=== PATIENT | female | born 1980 | race Caucasian/White ===

== ENCOUNTER 2017-10-10 07:43 | Emergency (ER) | payer MEDICAID ==
--- NOTE | 2017-10-10 08:48 | EDM.PDOC ---
ED HPI GENERAL MEDICAL PROBLEM - General Chief Complaint: Abdominal Pain Stated Complaint: ABD PAIN Time Seen by Provider: 10/10/17 08:45 Source of Information: Reports: Patient History Limitations: Reports: No Limitations - History of Present Illness INITIAL COMMENTS - FREE TEXT/NARRATIVE: pt is in the middle of her 30 day course of acutane. She is now having left lower abdomanal pain. She was told if she had abdomanal pain that she she should be checked. Onset: Other ( started last nite. ) Duration: Hour(s): Location: Reports: Abdomen Associated Symptoms: Reports: Nausea/Vomiting Lower Abdominal Pain Score (Numeric/FACES): 8 - Related Data Allergies Allergy/AdvReac Type Severity Reaction Status Date / Time No Known Allergies Allergy Verified 10/10/17 07:55 Home Meds: Home Meds ALPRAZolam [Alprazolam] 0.5 mg PO DAILY PRN 10/10/17 [History] Cyclobenzaprine [Flexeril] 10 mg PO TID PRN 10/10/17 [History] Fluconazole [Diflucan] 150 mg PO ONETIME PRN 10/10/17 [History] ISOtretinoin [Amnesteem] 80 mg PO DAILY 10/10/17 [History] Mometasone/Formoterol [Dulera 200 MCG/5 MCG] 10/10/17 [History] Naproxen [Naproxen] 375 mg PO TID PRN 10/10/17 [History] Nortriptyline [Nortriptyline] 50 mg PO BEDTIME 10/10/17 [History] Sertraline [Zoloft] 100 mg PO BID 10/10/17 [History] Zolpidem Tartrate [Ambien] 10 mg PO BEDTIME PRN 10/10/17 [History] Past Medical History Respiratory History: Reports: Asthma [employer] TECHNICIAN History: Reports: Psychiatric History: Reports: Anxiety, Depression - Infectious Disease History Infectious Disease History: Reports: Chicken Pox - Past Surgical History GI Surgical History: Reports: Appendectomy Female Surgical History: Reports: Hysterectomy Social & Family History - Tobacco Use Smoking Status *Q: Light Tobacco Smoker Years of Tobacco use: 20 Packs/Tins Daily: 0.5 - Caffeine Use Caffeine Use: Reports: Coffee, Energy Drinks, Soda - Recreational Drug Use Recreational Drug Use: No ED ROS GENERAL - Review of Systems Review Of Systems: See Below Constitutional: Reports: Decreased Appetite, Other (pt did vomit) HEENT: Reports: No Symptoms Respiratory: Reports: No Symptoms Cardiovascular: Reports: No Symptoms Endocrine: Reports: No Symptoms GI/Abdominal: Reports: Abdominal Pain, Nausea, Vomiting : Reports: No Symptoms ED EXAM, GI/ABD - Physical Exam Exam: See Below Text/Narrative:: pt arrived with increased pain in the left lower abdoman. This did start last nite. She is on acutate and she was told to come in if she has acute abdomanal pain. This did develop last nite. She did vomit last nite. She did rate her pain at a 8 when she arrived. Exam Limited By: No Limitations General Appearance: Alert, Anxious, Moderate Distress Ears: Normal TMs Nose: Normal Inspection Throat/Mouth: Normal Inspection Head: Atraumatic Neck: Normal Inspection Respiratory/Chest: No Respiratory Distress Cardiovascular: Regular Rate, Rhythm GI/Abdominal Exam: Tender, Other ( Pt is tender in the left lower abdoman. ) (Female) Exam: Deferred Rectal (Female) Exam: Deferred, Other (Pt is having normal bms. ) Back Exam: Normal Inspection Extremities: Normal Inspection Neurological: Alert, Oriented, Normal Cognition Psychiatric: Normal Affect Course - Vital Signs Last Recorded V/S: Last Vital Signs Temp 35.8 C 10/10/17 07:57 Pulse 99 10/10/17 07:57 Resp 16 10/10/17 07:57 BP 149/96 H 10/10/17 07:57 Pulse Ox 99 10/10/17 07:57 - Orders/Labs/Meds Orders: Active Orders 24 hr Category Date Time Status Pelvis Non OB Comp [US] Stat Exams 10/10/17 09:00 Ordered Transvaginal Non OB [US] Stat Exams 10/10/17 09:00 Ordered CULTURE URINE [RM] Stat Lab 10/10/17 10:06 Uncollected Labs: Laboratory Tests 10/10/17 10/10/17 10/10/17 Range/Units 08:11 08:11 08:24 WBC 9.9 (4.5-11.0) K/uL RBC 4.56 (3.30-5.50) M/uL Hgb 14.0 (12.0-15.0) g/dL Hct 39.4 (36.0-48.0) % MCV 86 (80-98) fL MCH 31 (27-31) pg MCHC 36 (32-36) % Plt Count 320 (150-400) K/uL Neut % (Auto) 76 H (36-66) % Lymph % (Auto) 17 L (24-44) % [place] % (Auto) 5 (2-6) % Eos % (Auto) 2 (2-4) % Baso % (Auto) 0 (0-1) % Sodium 134 L (140-148) mmol/L Potassium 3.9 (3.6-5.2) mmol/L Chloride 100 (100-108) mmol/L Carbon Dioxide 25 (21-32) mmol/L Anion Gap 12.9 (5.0-14.0) mmol/L BUN 8 (7-18) mg/dL Creatinine 0.7 (0.6-1.0) mg/dL Est Cr Clr Drug Dosing 112.08 mL/min Estimated GFR (MDRD) > 60 (>60) Glucose 127 H (74-106) mg/dL Calcium 8.7 (8.5-10.1) mg/dL Total Bilirubin 0.3 (0.2-1.0) mg/dL AST 17 (15-37) U/L ALT 31 (12-78) U/L Alkaline Phosphatase 75 (46-116) U/L Total Protein 7.3 (6.4-8.2) g/dL Albumin 4.1 (3.4-5.0) g/dL Globulin 3.2 (2.3-3.5) g/dL Albumin/Globulin Ratio 1.3 (1.2-2.2) Amylase 47 (25-115) U/L Lipase 99 (73-393) U/L Urine Color Yellow Urine Appearance Slightly cloudy Urine pH 6.0 (4.5-8.0) Ur Specific [place]oss 1.020 (1.008-1.030) Urine Protein Negative (NEGATIVE) mg/dL Urine Glucose (UA) Normal (NEGATIVE) mg/dL Urine Ketones Negative (NEGATIVE) mg/dL Urine Occult Blood Negative (NEGATIVE) Urine Nitrite Negative (NEGATIVE) Urine Bilirubin Negative (NEGATIVE) Urine Urobilinogen Normal (NORMAL) mg/dL Ur Leukocyte Esterase Negative (NEGATIVE) Urine RBC 0-5 (0-5) Urine WBC 0-5 (0-5) Ur Epithelial Cells Moderate Amorphous Sediment Not seen Urine Bacteria Moderate Urine Mucus Moderate Meds: Medications Discontinued Medications Generic Name Dose Route Start Last Admin Trade Name Francisco PRN Reason Stop Dose Admin Ketorolac Tromethamine 60 mg 10/10/17 09:08 10/10/17 09:11 Toradol IM 10/10/17 09:09 60 mg ONETIME ONE Administration - Re-Assessments/Exams Free Text/Narrative Re-Assessment/Exam: 10/10/17 10:10 pt had a normal wbc. Her pancreatic enzymes are normal. Her tenderness is in the left lower abdoman. She did have a Us of the pelvis wich shows her post hysterectomy > She has 2 --1.5 cm cysts on the left ovary . On the rt ovary she has a 2 cm cyst. She does not have free fluid in the pelvis. Hr chems are normal. Her urine did reveal some bacteria and it was cultured. Departure - Departure Time of Disposition: 10:16 Disposition: Home, Self-Care 01 Condition: Fair Clinical Impression: Bilateral ovarian cysts, Flu syndrome - Discharge Information Referrals: Tuyet Lowery PA [Primary Care Provider] - Forms: ED Department Discharge Care Plan Goals: hold acutane for 3-4 days, motrin 600mg qid for pain, norco 5/325 q6h prn for pain. If pain gets worse rtc and a cat scan of abdoman may be done. - My Orders Last 24 Hours: My Active Orders 10/10/17 09:00 Pelvis Non OB Comp [US] Stat Transvaginal Non OB [US] Stat 10/10/17 10:06 CULTURE URINE [RM] Stat - Assessment/Plan Last 24 Hours: My Active Orders 10/10/17 09:00 Pelvis Non OB Comp [US] Stat Transvaginal Non OB [US] Stat 10/10/17 10:06 CULTURE URINE [RM] Stat
[2017-10-10] MEDS ORDERED: Ketorolac 60 MG/2 ML SDV IM ONE (09:08)
--- NOTE | 2017-10-10 10:19 | US ---
Transvaginal Non OB, Pelvis Non OB Comp HISTORY: Pain in left lower abdomen. COMPARISON: Pelvic ultrasound 08/01/2016. FINDINGS: Patient has had prior hysterectomy. The right ovary measures 2.7 x 3.5 x 2.6 cm. There is s ome tiny follicles in the right ovary the largest measuring 1.8 cm. One has some internal echoes and is slightly complex. Normal color Doppler flow to the right ovary. The left ovary measures 3.5 x 2.3 x 1.7 cm. Small follicles in the left ovary largest measuring 1.5 c m. Impression: Small follicles in both ovaries. Prior hysterectomy. No acute findings seen.
== END 2017-10-10 10:30 | disposition home or self-care (01) ==
LOC: JP.ED 07:43
DX: N83.202 Unspecified ovarian cyst, left side (principal); N83.201 Unspecified ovarian cyst, right side; R09.89 Other specified symptoms and signs involving the circulatory and respiratory systems; F17.210 Nicotine dependence, cigarettes, uncomplicated; Z79.899 Other long term (current) drug therapy; Z90.49 Acquired absence of other specified parts of digestive tract
CPT/HCPCS: 36415; 76830; 76856; 80053; 81001; 82150; 83690; 85025; 87086; 96372; 99284; J1885

== ENCOUNTER 2018-04-18 10:53 | Day surgery (SDC) | payer MEDICAID ==
[~2018-04-18 10:53] MED LIST: Bupivacaine 0.5% 30 ML SDV ONE; Bupivacaine 0.5% 50 ML MDV ONE; Lidocaine 1% with EPINEPHrine 1:100,000 50 ML MDV ONE
[2018-04-18] MEDS ORDERED: Neostigmine Methylsulfate 1 MG/ML 5 ML Syringe ONE (11:34)
[2018-04-18] MEDS ORDERED: Ondansetron 4 MG/2 ML SDV ONE (11:34)
[2018-04-18] MEDS ORDERED: fentaNYL 250 MCG/5 ML SDV ONE (11:34)
[2018-04-18] MEDS ORDERED: Propofol 200 MG/20 ML SDV ONE (11:34)
[2018-04-18] MEDS ORDERED: Dexamethasone 4 MG/ML SDV ONE (11:34)
[2018-04-18] MEDS ORDERED: Glycopyrrolate 0.2 MG/ML 5 ML MDV ONE (11:34)
[2018-04-18] MEDS ORDERED: Succinylcholine 200 MG/10 ML MDV ONE (11:34)
[2018-04-18] MEDS ORDERED: Rocuronium 50 MG/5 ML Vial ONE (11:34)
[2018-04-18] MEDS ORDERED: Midazolam 1 MG/ML 2 ML SDV ONE (11:35)
[2018-04-18] MEDS ORDERED: Dextrose 5%-Lactated Ringers 1,000 ML IV SCH (12:15)
[2018-04-18] MEDS ORDERED: cefOXitin 2 GM in Sodium Chloride 0.9% 50 ML IV ONE (12:30)
[2018-04-18] MEDS ORDERED: Zolpidem 5 MG Tab PO PRN (14:10)
[2018-04-18] MEDS ORDERED: Albuterol 8 GM Inhaler INH PRN (14:10)
[2018-04-18] MEDS ORDERED: Fluconazole 150 MG Tab PO PRN (14:10)
[2018-04-18] MEDS ORDERED: Cyclobenzaprine 10 MG Tab PO PRN (14:10)
[2018-04-18] MEDS ORDERED: Docusate Sodium 100 MG Cap PO PRN (14:13)
[2018-04-18] MEDS ORDERED: Morphine 2 MG/ML Syringe IVPUSH PRN (14:13)
[2018-04-18] MEDS ORDERED: Ondansetron 4 MG/2 ML SDV IVPUSH PRN (14:13)
[2018-04-18] MEDS ORDERED: fentaNYL 100 MCG/2 ML SDV IVPUSH ONE (14:22)
[2018-04-18] MEDS ORDERED: hydrOXYzine HCl 100 MG/2 ML SDV IM ONE (14:22)
[2018-04-18] MEDS ORDERED: Morphine 2 MG/ML Syringe IVPUSH ONE ×2 (14:46→15:13)
[2018-04-18] MEDS: Acetaminophen/HYDROcodone 325-5 MG Tab PO PRN ×2 (16:10→21:26)
[2018-04-18] MEDS: D5 1/2 NS w/ 20 mEq/L KCl 1,000 ML IV SCH (19:40)
[2018-04-18] MEDS ORDERED: Nortriptyline 25 MG Cap PO SCH (21:00)
[2018-04-18] MEDS: Formoterol/Mometasone 200-5 MCG 8.8 GM Inhaler IH SCH (21:27)
[2018-04-18] MEDS: LORazepam 0.5 MG Tab PO SCH (21:27)
[2018-04-18] MEDS: Mupirocin Oint 22 GM Tube TOP SCH (21:29)
[2018-04-18] MEDS: Triamcinolone Acetonide 0.1% Crm 15 GM Tube TOP SCH (21:29)
[2018-04-18] MEDS: Sertraline 50 MG Tab PO SCH (21:30)
[2018-04-19] MEDS: Acetaminophen/HYDROcodone 325-5 MG Tab PO PRN ×2 (02:43→07:11)
[2018-04-19] MEDS: D5 1/2 NS w/ 20 mEq/L KCl 1,000 ML IV SCH (03:51)
--- NOTE | 2018-04-19 06:20 | PCM.DCSUM1 ---
Discharge Summary - Hospital Course Free Text/Narrative:: This 37 year old white female has complained of intermittent episodes of upper abdominal pain for years. An abdominal ultrasound was unremarkable. A CCK stimulated HIDA scan was abnormal in that her ejection fraction was only 3.4% consistent with biliary dyskinesia and chronic cholecystitis. She was admitted April 18, 2018 and underwent a laparoscopic cholecystectomy. She currently is eating and wants to go home. Her alkaline phosphatase and T. bili. are unremarkable. She is discharged at this time in good condition. HPI Initial Comments: See above narrative. Brief History: See above narrative. Diagnosis: Stroke: No - Discharge Data Discharge Date: 04/19/18 Discharge Disposition: Home, Self-Care 01 Condition: Good - Patient Summary/Data Operative Procedure(s) Performed: Laparoscopic cholecystectomy. Consults: Consultations 04/18/18 14:13 Respiratory Care Assess and Treatment [CONS] Routine Comment: Physician Instructions: Post-Op Pneumonia Prevention Hospital Course: See above narrative. - Patient Instructions Diet: Usual Diet as Tolerated Activity: As Tolerated (Avoid activity that causes discomfort) Driving, Other: Do not drive while taking narcotic pain medication. Showering/Bathing: May Shower Notify Provider of: Fever, Increased Pain, Swelling and Redness, Drainage, Nausea and/or Vomiting - Discharge Plan *PRESCRIPTION DRUG MONITORING PROGRAM REVIEWED*: No *COPY OF PRESCRIPTION DRUG MONITORING REPORT IN PATIENT JENNIFER: No Prescriptions/Med Rec: Acetaminophen/HYDROcodone [Arlee 325-5 MG] 2 tab PO Q4H PRN #30 tablet PRN Reason: Pain (Moderate 4-6) Home Medications: Home Meds Cyclobenzaprine [Flexeril] 10 mg PO TID PRN 10/10/17 [History] Fluconazole [Diflucan] 150 mg PO ONETIME PRN 10/10/17 [History] Mometasone/Formoterol [Dulera 200 MCG/5 MCG] 2 puff INH BID 10/10/17 [History] Naproxen 500 mg PO BID PRN 10/10/17 [History] Nortriptyline 50 mg PO BEDTIME 10/10/17 [History] Sertraline [Zoloft] 100 mg PO BID 10/10/17 [History] Zolpidem Tartrate [Ambien] 10 mg PO BEDTIME PRN 10/10/17 [History] ARIPiprazole [Abilify] 2 mg PO DAILY 04/16/18 [History] Albuterol [Ventolin HFA] 1 - 2 inh INH Q4H PRN 04/16/18 [History] LORazepam [Ativan] 0.5 mg PO BID 04/16/18 [History] Mupirocin Oint [Bactroban Oint] 1 applic TOP TID 04/16/18 [History] Triamcinolone Acetonide [Kenalog 0.1% Crm] 1 applic TOP BID 04/16/18 [History] Acetaminophen/HYDROcodone [Arlee 325-5 MG] 2 tab PO Q4H PRN #30 tablet 04/19/18 [Rx] Docusate Sodium [Colace] 100 mg PO BID PRN cap 04/19/18 [Rx] Referrals: Jeffrey Weller MD [Physician] - (See me in [facility] in about two weeks. ) - Discharge Summary/Plan Comment DC Time >30 min.: Yes Discharge Summary/Plan Comment: See above narrative. - Patient Data Vitals - Most Recent: Last Vital Signs Temp 97.2 F 04/19/18 02:39 Pulse 117 H 04/19/18 02:39 Resp 16 04/19/18 02:39 BP 110/69 04/19/18 02:39 Pulse Ox 95 04/19/18 02:39 Weight - Most Recent: 180 lb I&O - Last 24 hours: Intake & Output 04/18/18 04/18/18 04/19/18 14:59 22:59 06:59 Intake Total 867 751 0622 Output Total 400 200 Balance 550 -59 1326 Lab Results - Last 24 hrs: Laboratory Results - last 24 hr 04/19/18 04/19/18 Range/Units 05:11 05:11 WBC 17.4 H (4.5-11.0) K/uL RBC 4.19 (3.30-5.50) M/uL Hgb 12.8 (12.0-15.0) g/dL Hct 36.9 (36.0-48.0) % MCV 88 (80-98) fL MCH 31 (27-31) pg MCHC 35 (32-36) % Plt Count 309 (150-400) K/uL Neut % (Auto) 82 H (36-66) % Lymph % (Auto) 12 L (24-44) % [place] % (Auto) 6 (2-6) % Eos % (Auto) 0 L (2-4) % Baso % (Auto) 0 (0-1) % Total Bilirubin 0.3 (0.2-1.0) mg/dL Alkaline Phosphatase 71 (46-116) U/L Med Orders - Current: Current Medications Hydrocodone Bitart/Acetaminophen (Arlee 325-5 Mg) 2 tab PO Q4H PRN PRN Reason: Pain (moderate 4-6) Last Admin: 04/19/18 02:43 Dose: 2 tab Albuterol (Ventolin Hfa) 0 gm INH Q4H PRN PRN Reason: .shortnessofbreath Aripiprazole (Abilify) 2 mg PO DAILY [facility] Cyclobenzaprine HCl (Flexeril) 10 mg PO TID PRN PRN Reason: Muscle Spasm Docusate Sodium (Colace) 100 mg PO BID PRN PRN Reason: Congestion Fluconazole (Diflucan) 150 mg PO ONETIME PRN PRN Reason: onset of yeast inf Potassium Chloride/Dextrose/Sod Cl (D5 1/2 Ns W/ 20 Meq/L Kcl) 1,000 mls @ 125 mls/hr IV ASDIRECTED [facility] Last Admin: 04/19/18 03:51 Dose: 125 mls/hr Lorazepam (Ativan) 0.5 mg PO BID [facility] Last Admin: 04/18/18 21:27 Dose: 0.5 mg Mometasone Furoate/Formoterol Fumar (Dulera 200-5 Mcg) 2 puff IH BIDRT [facility] Last Admin: 04/18/18 21:27 Dose: 2 puff Morphine Sulfate (Morphine) 2 mg IVPUSH Q1H PRN PRN Reason: Pain (severe 7-10) Last Admin: 04/18/18 18:02 Dose: 2 mg Mupirocin (Bactroban Oint) 0 gm TOP TID [facility] Last Admin: 04/18/18 21:29 Dose: Not Given Nortriptyline HCl (Nortriptyline) 50 mg PO BEDTIME [facility] Last Admin: 04/18/18 21:29 Dose: 50 mg Ondansetron HCl (Zofran) 4 mg IVPUSH Q4H PRN PRN Reason: Nausea/Vomiting Sertraline HCl (Zoloft) 100 mg PO BID [facility] Last Admin: 04/18/18 21:30 Dose: 100 mg Triamcinolone Acetonide (Triamcinolone Acetonide 0.1% Crm) 0 gm TOP BID [facility] Last Admin: 04/18/18 21:29 Dose: Not Given Zolpidem Tartrate (Ambien) 10 mg PO BEDTIME PRN PRN Reason: Sleep Last Admin: 04/18/18 21:27 Dose: 10 mg Discontinued Medications Bupivacaine HCl (Marcaine 0.5%) Confirm Administered Dose 30 ml .ROUTE .STK-MED ONE Stop: 04/18/18 09:39 Bupivacaine HCl (Marcaine 0.5%) Confirm Administered Dose 50 ml .ROUTE .STK-MED ONE Stop: 04/18/18 09:40 Last Admin: 04/18/18 13:50 Dose: 10 ml Dexamethasone (Dexamethasone) Confirm Administered Dose 4 mg .ROUTE .STK-MED ONE Stop: 04/18/18 11:35 Fentanyl (Sublimaze) Confirm Administered Dose 250 mcg .ROUTE .STK-MED ONE Stop: 04/18/18 11:35 Fentanyl (Sublimaze) 100 mcg IVPUSH ONETIME ONE Stop: 04/18/18 14:23 Last Admin: 04/18/18 14:33 Dose: 100 mcg Glycopyrrolate (Robinul) Confirm Administered Dose 1 mg .ROUTE .STK-MED ONE Stop: 04/18/18 11:35 Hydroxyzine HCl (Vistaril) 100 mg IM ONETIME ONE Stop: 04/18/18 14:23 Last Admin: 04/18/18 14:29 Dose: 100 mg Dextrose/Lactated Ringer's (Dextrose 5%-Lactated Ringers) 1,000 mls @ 100 mls/ hr IV ASDIRECTED [facility] Last Admin: 04/18/18 11:57 Dose: 100 mls/hr Cefoxitin Sodium 2 gm/ Sodium (Chloride) 50 mls @ 100 mls/hr IV ONETIME ONE Stop: 04/18/18 12:59 Last Admin: 04/18/18 13:15 Dose: 100 mls/hr Lactated Ringer's (Ringers, Lactated) 1,000 ml IRR .STK-MED ONE Stop: 04/18/18 13:51 Last Admin: 04/18/18 13:50 Dose: 1,000 ml Lidocaine/Epinephrine (Xylocaine 1% With Epinephrine 1:100,000) Confirm Administered Dose 50 ml .ROUTE .STK-MED ONE Stop: 04/18/18 09:39 Last Admin: 04/18/18 13:50 Dose: 10 ml Midazolam HCl (Versed 1 Mg/Ml) Confirm Administered Dose 2 mg .ROUTE .STK-MED ONE Stop: 04/18/18 11:36 Morphine Sulfate (Morphine) 2 mg IVPUSH ONETIME ONE Stop: 04/18/18 14:47 Last Admin: 04/18/18 14:53 Dose: 2 mg Morphine Sulfate (Morphine) 2 mg IVPUSH ONETIME ONE Stop: 04/18/18 15:14 Last Admin: 04/18/18 15:20 Dose: 2 mg Neostigmine Methylsulfate (Neostigmine) Confirm Administered Dose 5 mg .ROUTE .STK-MED ONE Stop: 04/18/18 11:35 Ondansetron HCl (Zofran) Confirm Administered Dose 4 mg .ROUTE .ST-MED ONE Stop: 04/18/18 11:35 Propofol (Diprivan 20 Ml) Confirm Administered Dose 200 mg .ROUTE .STK-MED ONE Stop: 04/18/18 11:35 Rocuronium [place] (Zemuron) Confirm Administered Dose 50 mg .ROUTE .STK-MED ONE Stop: 04/18/18 11:35 Succinylcholine Chloride (Quelicin) Confirm Administered Dose 200 mg .ROUTE .STK -MED ONE Stop: 04/18/18 11:35
[2018-04-19] MEDS: Formoterol/Mometasone 200-5 MCG 8.8 GM Inhaler IH SCH (07:10)
--- NOTE | 2018-04-19 07:28 | OR ---
DATE OF PROCEDURE: 04/18/2018 PREOPERATIVE DIAGNOSES: Chronic cholecystitis with biliary dyskinesia. POSTOPERATIVE DIAGNOSES: Chronic cholecystitis with biliary dyskinesia. PROCEDURE: Laparoscopic cholecystectomy. SURGEON: Jeffrey Weller MD. ANESTHESIA: General endotracheal. INDICATION: This 37-year-old white female was seen by me two days ago complaining of years of intermittent episodes of upper abdominal pain. She had an abdominal ultrasound, which was unremarkable. She had an abnormal ejection fraction on her CCK-stimulated HIDA scan of only 3.4%. This was consistent with biliary dyskinesia and chronic cholecystitis. Liver functions were unremarkable. She is admitted for laparoscopic cholecystectomy. Prior abdominal surgery consists of an appendectomy as a child and, also, she has had a hysterectomy. I counseled her for surgery including risks and alternatives, and she gave her informed consent to proceed. DESCRIPTION OF PROCEDURE: After adequate general endotracheal anesthesia was obtained, the patient's abdomen was prepped and draped in the usual sterile fashion. The leg compression stockings were in place and used during the entire procedure. Time-out was held. An infraumbilical semicircular incision was made. Under direct vision, a 12-mm port was introduced in the abdomen. Through this incision, using the Optiview technique, the camera was introduced into the abdomen, and the abdomen was insufflated to a pressure of 20 mmHg with carbon dioxide. No evidence of intraabdominal injury was seen. Under direct vision, a 12-mm port was placed in the epigastrium and a 5-mm port was placed in the right lower quadrant. The gallbladder was grasped and elevated. There were adhesions of omentum to the gallbladder consistent with chronic cholecystitis. These were all dissected free. The cystic duct and arteries were dissected free. They were each clipped up on the gallbladder, 3 times proximally for the duct and 2 times proximally for the artery. They were divided between the clips. The gallbladder was then dissected free from the gallbladder bed using Bovie electrocautery. The gallbladder was placed in a sample retrieval bag and elevated up through the anterior abdominal wall via the epigastric port site. It was delivered from the field, where it was cultured. The epigastric port was reintroduced back in the abdomen, and the gallbladder bed was irrigated and suctioned dry, and all looked well. The fascial closure device was used to place an 0 Vicryl stitch in the epigastric fascial defect. The infraumbilical port was removed with an interrupted stitch of 0 Vicryl used to close this fascial defect. We evacuated as much CO2 as we could from the right lower quadrant 5-mm port and then this port was removed from the abdomen. Lidocaine 1% with epinephrine in a 50:50 mix with 0.5% Marcaine was infiltrated about all incisions. 4-0 Vicryl using a subcuticular stitch was placed to approximate the skin of the incisions. Dermabond was applied. The anesthesia was reversed. She was extubated and brought to recovery room in a good condition. Jeffrey Weller MD /[id number]
[2018-04-19] MEDS: Sertraline 50 MG Tab PO SCH (08:35)
[2018-04-19] MEDS: LORazepam 0.5 MG Tab PO SCH (08:35)
[2018-04-19] MEDS: Mupirocin Oint 22 GM Tube TOP SCH (08:37)
[2018-04-19] MEDS: Triamcinolone Acetonide 0.1% Crm 15 GM Tube TOP SCH (08:37)
== END 2018-04-19 09:32 | disposition home or self-care (01) ==
LOC: JP.SDS 10:53 → JP.MS 14:13 → JP.SDS 04-19 09:32
PROVIDERS: ATTEND Surgery
DX: K81.1 Chronic cholecystitis (principal); K82.8 Other specified diseases of gallbladder; Z79.899 Other long term (current) drug therapy; F41.1 Generalized anxiety disorder; F33.42 Major depressive disorder, recurrent, in full remission; G47.00 Insomnia, unspecified
CPT/HCPCS: 36415; 47562; 82247; 84075; 85025; 94664; 94762; A9270; J0694; J1100; J2250; J2270; J2405; J2704; J2710; J3010; J3410; J3480; J3490; J7042; J7050; J7120; 88304; J0330